=== PATIENT | female | born 1940 | race Two or more races ===

== ENCOUNTER 2018-01-13 11:49 | Emergency (ER) | payer MEDICARE, OTHER ==
[~2018-01-13] VITALS: Ht 142.2 cm; Wt 36.7 kg
[2018-01-13 13:06] VITALS: BP 186/71
[2018-01-13 13:25] LABS: HEMATOCRIT 24.9 % (37.0-47.0); HEMOGLOBIN 8.4 G/DL (12.0-16.0); MEAN CORPUSCULAR VOLUME 92 FL (80-99); PLATELET COUNT 167 K/UL (150-450); RED BLOOD COUNT 2.71 M/UL (4.20-5.40); RED CELL DISTRIBUTION WIDTH 14.6 % (11.6-14.8); WHITE BLOOD COUNT 7.8 K/UL (4.8-10.8)
[2018-01-13 13:39] LABS: ANION GAP 8 mmol/L (5-15); BLOOD UREA NITROGEN 11 mg/dL (7-18); CALCIUM 8.5 MG/DL (8.5-10.1); CARBON DIOXIDE 34 MMOL/L (21-32); CHLORIDE 94 MMOL/L (98-107); POTASSIUM 3.6 MMOL/L (3.5-5.1); SODIUM 135 MMOL/L (136-145)
[2018-01-13 13:44] LABS: ALANINE AMINOTRANSFERASE 17 U/L (12-78); ALBUMIN 3.4 G/DL (3.4-5.0); ALBUMIN/GLOBULIN RATIO 0.8 (1.0-2.7); ALKALINE PHOSPHATASE 88 U/L (46-116); ASPARTATE AMINO TRANSFERASE 25 U/L (15-37); BILIRUBIN,TOTAL 0.7 MG/DL (0.2-1.0)
--- NOTE | 2018-01-13 15:10 | Emergency Room Report ---
History of Present Illness General Chief Complaint: Abnormal Labs Source: Family Member, Medical Record Present Illness HPI This patient presents to the emergency department at the request of her primary care physician. She underwent routine laboratory studies on January 10 and was found to be anemic with hemoglobin in the mid sevens. She does have a history of anemia but normally not quite this low. She has no other complaints. She denies abdominal pain. She denies dark-colored stool. She denies diarrhea. She denies hematemesis. She denies epigastric pain. She does have a history of end-stage renal disease and is dialysis dependent. She has no other complaints. Allergies: Coded Allergies: ADALIMUMAB (Verified Allergy, Severe, Rash, 01/13/18) PENICILLINS (Verified Allergy, Severe, Rash, 01/13/18) METHOTREXATE (Verified Allergy, Unknown, 01/13/18) Uncoded Allergies: GOLD (Allergy, Unknown, 01/13/18) Patient History Past Medical History: see triage record, HTN, renal disease, dialysis, other - Hyperthyroid Social History: Denies: smoking, alcohol use, drug use Last Menstrual Period: na Reviewed Nursing Documentation: PMH: Agreed; PSxH: Agreed Nursing Documentation-PMH Past Medical History: No History, Except For Hx Gastrointestinal Problems: Yes - gi bleed Hx Dialysis: Yes History Of Psychiatric Problem: Yes - depression Hx Neurological Problems: Yes - rheumatoid arthritis Review of Systems All Other Systems: negative except mentioned in HPI Physical Exam Vital Signs Date Time Temp Pulse Resp B/P (MAP) Pulse Ox O2 Delivery O2 Flow Rate FiO2 01/13/18 12:04 98.2 79 16 158/55 97 Room Air 98.2 Sp02 EP Interpretation: reviewed, normal General Appearance: no apparent distress, alert, GCS 15, non-toxic Head: normocephalic, atraumatic Eyes: bilateral eye normal inspection, bilateral eye PERRL ENT: hearing grossly normal, normal pharynx, no angioedema, normal voice Neck: full range of motion, supple/symm/no masses Respiratory: chest non-tender, lungs clear, normal breath sounds, no respiratory distress, no retraction, no accessory muscle use, speaking full sentences Cardiovascular #1: regular rate, rhythm, no edema Gastrointestinal: normal bowel sounds, non tender, soft, non-distended, no guarding, no rebound Rectal: deferred Musculoskeletal: back normal, gait/station normal, normal range of motion, non- tender Neurologic: alert, oriented x3, responsive, motor strength/tone normal, sensory intact, speech normal Psychiatric: judgement/insight normal, memory normal, mood/affect normal, no suicidal/homicidal ideation Skin: normal color, no rash, warm/dry, well hydrated Medical Decision Making Diagnostic Impression: Primary Impression: Anemia ER Course The patient has a normocytic anemia. I am unsure of the etiology. The history is not consistent with a GI bleed. There could still be a small occult GI bleed. The hemoglobin is actually higher than the previous drawn lab. Further discussion with the patient's daughter who is a nurse feels that this can be worked up as an outpatient. The patient has chronic anemia. She will follow- up with her primary care physician Dr. Joshi for colonoscopy and endoscopy. I feel that this is an appropriate plan. I did discuss this with the patient's primary care physician Dr. Joshi who also agreed to the plan. He will follow -up closely in his clinic. The patient and the patient's daughter given close return precautions and follow-up instructions. Laboratory Tests Test 01/13/18 13:00 White Blood Count 7.8 K/UL (4.8-10.8) Red Blood Count 2.71 M/UL (4.20-5.40) L Hemoglobin 8.4 G/DL (12.0-16.0) L Hematocrit 24.9 % (37.0-47.0) L Mean Corpuscular Volume 92 FL (80-99) Mean Corpuscular Hemoglobin 31.0 PG (27.0-31.0) Mean Corpuscular Hemoglobin Concent 33.8 G/DL (32.0-36.0) Red Cell Distribution Width 14.6 % (11.6-14.8) Platelet Count 167 K/UL (150-450) Mean Platelet Volume 5.2 FL (6.5-10.1) L Neutrophils (%) (Auto) % (45.0-75.0) Lymphocytes (%) (Auto) % (20.0-45.0) Monocytes (%) (Auto) % (1.0-10.0) Eosinophils (%) (Auto) % (0.0-3.0) Basophils (%) (Auto) % (0.0-2.0) Differential Total Cells Counted 100 Neutrophils % (Manual) 93 % (45-75) H Lymphocytes % (Manual) 4 % (20-45) L Monocytes % (Manual) 3 % (1-10) Eosinophils % (Manual) 0 % (0-3) Basophils % (Manual) 0 % (0-2) Band Neutrophils 0 % (0-8) Platelet Estimate Adequate Platelet Morphology Normal Hypochromasia Anisocytosis 1+ Prothrombin Time 10.1 SEC (9.30-11.50) Prothrombin Time INR 1.0 (0.9-1.1) PTT 29 SEC (23-33) Sodium Level 135 MMOL/L (136-145) L Potassium Level 3.6 MMOL/L (3.5-5.1) Chloride Level 94 MMOL/L (98-107) L Carbon Dioxide Level 34 MMOL/L (21-32) H Anion Gap 8 mmol/L (5-15) Blood Urea Nitrogen 11 mg/dL (7-18) Creatinine 2.0 MG/DL (0.55-1.30) H Estimate Glomerular Filtration Rate mL/min (>60) Glucose Level 107 MG/DL (74-106) H Calcium Level 8.5 MG/DL (8.5-10.1) Total Bilirubin 0.7 MG/DL (0.2-1.0) Aspartate Amino Transferase (AST) 25 U/L (15-37) Alanine Aminotransferase (ALT) 17 U/L (12-78) Alkaline Phosphatase 88 U/L (46-116) Total Protein 7.7 G/DL (6.4-8.2) Albumin 3.4 G/DL (3.4-5.0) Globulin 4.3 g/dL Albumin/Globulin Ratio 0.8 (1.0-2.7) L Last Vital Signs Date Time Temp Pulse Resp B/P (MAP) Pulse Ox O2 Delivery O2 Flow Rate FiO2 01/13/18 13:06 75 16 186/71 97 Room Air 01/13/18 12:04 98.2 98.2 Status: improved Disposition: HOME, SELF-CARE Condition: Improved Referrals: Champ Peña MD (PCP) Monie Uribe DO Jan 13, 2018 15:10
[2018-01-13 15:20] VITALS: BP 165/87
== END 2018-01-13 15:20 | disposition home or self-care (01) ==
LOC: EMR 12:44
DX: D64.9 Anemia, unspecified (principal); I12.0 Hypertensive chronic kidney disease with stage 5 chronic kidney disease or end stage renal disease; N18.6 End stage renal disease; M06.9 Rheumatoid arthritis, unspecified; Z99.2 Dependence on renal dialysis; Z88.0 Allergy status to penicillin; Z88.8 Allergy status to other drugs, medicaments and biological substances
CPT/HCPCS: 36415; 80053; 85007; 85025; 85610; 85730; 99284

== ENCOUNTER 2018-02-10 13:08 | Outpatient (CLI) | payer MEDICARE, OTHER ==
[2018-02-10 14:10] VITALS: BP 157/64
[2018-02-10] MEDS ORDERED: PREDNISONE10 MG ORAL (14:59)
[2018-02-10] MEDS ORDERED: PANTOPRAZOLE SO40 MG ORAL (14:59)
[2018-02-10] MEDS ORDERED: LEVETIRACETAM500 MG ORAL (14:59)
[2018-02-10] MEDS ORDERED: GABAPENTIN100 MG ORAL (14:59)
[2018-02-10] MEDS ORDERED: LABETALOL HCL200 MG ORAL (14:59)
[2018-02-10] MEDS ORDERED: LEXAPRO10 MG ORAL (14:59)
[2018-02-10] MEDS ORDERED: BARACLUDE0.5 MG ORAL (14:59)
[2018-02-10] MEDS ORDERED: HYDRALAZINE HC100 MG ORAL (14:59)
[2018-02-10] MEDS ORDERED: PROCARDIA XL90 M4 ORAL (14:59)
[2018-02-10] MEDS ORDERED: FUROSEMIDE40 MG ORAL (14:59)
[2018-02-10] MEDS ORDERED: RENVELA0.8 GM ORAL (14:59)
--- NOTE | 2018-02-10 18:04 | GI Initial Consult Note ---
History of Present Illness General Date patient seen: Feb 10, 2018 Time patient seen: 15:00 Referring physician: SCOTTY Reason for Consultation: PRE OP EGD Present Illness HPI 78 year old female patient presents today for evaluation of anemia. In addition , has complaint of unintentional weight loss. No other GI symptoms noted; denies abdominal pain, denies N/V/D or constipation. Denies any unintentional weight loss or changes in dietary habits. No signs of abuse or neglect. Patient is not fall risk. Home Meds Reported Medications Entecavir* (BARACLUDE*) 0.5 Mg Tablet, 0.5 MG ORAL QWEEK, TAB 02/10/18 Hydralazine Hcl* (HYDRALAZINE HCL*) 100 Mg Tablet, 100 MG ORAL BID, TAB 02/10/18 Escitalopram Oxalate* (LEXAPRO*) 10 Mg Tablet, 15 MG ORAL DAILY, TAB 02/10/18 Sevelamer Carbonate* (RENVELA*) 0.8 Gm Powd.pack, 800 MG ORAL THREE TIMES A DAY , PACK 02/10/18 Furosemide* (LASIX*) 40 Mg Tablet, 40 MG ORAL TWICE A DAY, TAB 0 Refills 02/10/18 Prednisone* (PREDNISONE*) 10 Mg Tablet, 10 MG ORAL BID, #10 TAB 0 Refills 02/10/18 Pantoprazole* (PANTOPRAZOLE*) 40 Mg Tablet.dr, 40 MG ORAL EVERY 12 HOURS, TAB 02/10/18 Levetiracetam* (LEVETIRACETAM*) 500 Mg Tablet, 500 MG ORAL TWICE A DAY, #60 TAB 0 Refills 02/10/18 Labetalol Hcl* (NORMODYNE*) 200 Mg Tablet, 200 MG ORAL EVERY 12 HOURS, TAB 02/10/18 Gabapentin* (GABAPENTIN*) 100 Mg Capsule, 100 MG ORAL BID, CAP 02/10/18 Nifedipine Xl* (PROCARDIA XL*) 90 Mg Tab.er.24, 90 MG ORAL BID, TAB 02/10/18 Med list reviewed/reconciled: Yes Allergies: Coded Allergies: ADALIMUMAB (Verified Allergy, Severe, Rash, 01/13/18) PENICILLINS (Verified Allergy, Severe, Rash, 01/13/18) METHOTREXATE (Verified Allergy, Unknown, 01/13/18) Uncoded Allergies: GOLD (Allergy, Unknown, 01/13/18) Patient History History Provided By: Patient, Medical Record PMH Narrative Pleural Effusion Pericardial Effusion HTN ESRD LVH SCI ANEMIA s/p Septic Shock OA RA Wheelchair dependent HTN PUD Past Surgical History: Thoracentesis Hysterectomy Laminectomy Social History: Denies: smoking, alcohol use, drug use, other Review of Systems All Other Systems: negative except mentioned in HPI Physical Exam Vital Signs Date Time Temp Pulse Resp B/P (MAP) Pulse Ox O2 Delivery O2 Flow Rate FiO2 02/10/18 14:10 97.8 76 16 157/64 95 Sp02 EP Interpretation: reviewed, normal General Appearance: well appearing, no apparent distress, alert Head: normocephalic EENT: PERRL/EOMI, normal ENT inspection Neck: supple Respiratory: normal breath sounds, no respiratory distress Cardiovascular: normal rate Gastrointestinal: normal inspection, non tender, soft, normal bowel sounds, non -distended Rectal: deferred Genitourinary: no CVA tenderness Musculoskeletal: normal inspection, back normal Neurologic: normal inspection, alert, oriented x3, responsive Psychiatric: normal inspection, judgement/insight normal, memory normal Skin: normal inspection, normal color, no rash, warm/dry, palpation normal, well hydrated Lymphatic: normal inspection, no adenopathy GI: Plan Problems: (1) Anemia (2) Weight loss (3) Colonoscopy planned (4) GERD (gastroesophageal reflux disease) (5) HTN (hypertension) (6) ESRD (end stage renal disease) (7) PUD (peptic ulcer disease) Plan EGD/colonoscopy scheduled. - CLD & (Nulytely/Suprep/Movi-Prep) prep instructions given and acknowledged by patient. - NPO @ MO day prior procedure explained. Seen with Dr. Cruz. Thank you for this patient referral. The patient was seen and examined at bedside and all new and available data was reviewed in the patients chart. I agree with the above findings, impression and plan. (Patient seen earlier today. Signature stamp does not reflect patient encounter time.). - MD Meliza Levi,[facility] [employer] Feb 10, 2018 18:04
== END 2018-02-10 13:38 | disposition home or self-care (01) ==
LOC: PAN 13:08
DX: Z01.818 Encounter for other preprocedural examination (principal); D64.9 Anemia, unspecified; R63.4 Abnormal weight loss; K21.9 Gastro-esophageal reflux disease without esophagitis; I12.0 Hypertensive chronic kidney disease with stage 5 chronic kidney disease or end stage renal disease; N18.6 End stage renal disease; K27.9 Peptic ulcer, site unspecified, unspecified as acute or chronic, without hemorrhage or perforation; M19.90 Unspecified osteoarthritis, unspecified site; M06.9 Rheumatoid arthritis, unspecified; Z99.3 Dependence on wheelchair; Z88.0 Allergy status to penicillin; Z88.8 Allergy status to other drugs, medicaments and biological substances; Z91.048 Other nonmedicinal substance allergy status
CPT/HCPCS: 99202

== ENCOUNTER 2018-02-19 09:16 | Day surgery (SDC) | payer MEDICARE, OTHER ==
[~2018-02-19] VITALS: Ht 142.2 cm; Wt 40.4 kg
[~2018-02-19 09:16] MED LIST: BARACLUDE0.5 MG ORAL; FUROSEMIDE40 MG ORAL; GABAPENTIN100 MG ORAL; HYDRALAZINE HC100 MG ORAL; LABETALOL HCL200 MG ORAL; LEVETIRACETAM500 MG ORAL; LEXAPRO10 MG ORAL; PANTOPRAZOLE SO40 MG ORAL; PREDNISONE10 MG ORAL; PROCARDIA XL90 M4 ORAL; RENVELA0.8 GM ORAL
--- NOTE | 2018-02-19 09:50 | Short Stay Surgery H&P ---
History of Present Illness History of Present Illness Chief Complaint see recent office note HPI Guicho Rogers is a 78 year old female who was admitted on for Anemia And Gerd Patient History Allergies: Coded Allergies: ADALIMUMAB (Verified Allergy, Severe, Rash, 01/13/18) PENICILLINS (Verified Allergy, Severe, Rash, 01/13/18) METHOTREXATE (Verified Allergy, Unknown, 01/13/18) Uncoded Allergies: GOLD (Allergy, Unknown, 01/13/18) Medication History Scheduled Entecavir* (Baraclude*), 0.5 MG ORAL QWEEK, (Reported) Escitalopram Oxalate* (Lexapro*), 15 MG ORAL DAILY, (Reported) Furosemide* (Lasix*), 40 MG ORAL TWICE A DAY, (Reported) Gabapentin* (Gabapentin*), 100 MG ORAL BID, (Reported) Hydralazine Hcl* (Hydralazine Hcl*), 100 MG ORAL BID, (Reported) Labetalol Hcl* (Normodyne*), 200 MG ORAL EVERY 12 HOURS, (Reported) Levetiracetam* (Levetiracetam*), 500 MG ORAL TWICE A DAY, (Reported) Nifedipine Xl* (Procardia Xl*), 90 MG ORAL BID, (Reported) Pantoprazole* (Pantoprazole*), 40 MG ORAL EVERY 12 HOURS, (Reported) Prednisone* (Prednisone*), 10 MG ORAL BID, (Reported) Sevelamer Carbonate* (Renvela*), 800 MG ORAL THREE TIMES A DAY, (Reported) Plan Attestation Are the patient's medical conditions optimized for surgery? Brian Cruz MD Feb 19, 2018 09:50
--- NOTE | 2018-02-19 09:50 | Pre-Procedure Note/Attestation ---
Pre-Procedure Note/Attestation Complete Prior to Procedure Planned Procedure: not applicable Procedure Narrative: egd Indications for Procedure Pre-Operative Diagnosis: anemia Attestation I attest that I discussed the nature of the procedure; its benefits; risks and complications; and alternatives (and the risks and benefits of such alternatives ), prior to the procedure, with the patient (or the patient's legal sales and merchandising representative). I attest that, if there was a reasonable possibility of needing a blood transfusion, the patient (or the patient's legal sales and merchandising representative) was given the [facility] standardized written summary, pursuant to the [place] Blood Safety Act ([place] Health and Safety Code # 1645, as amended). I attest that I re-evaluated the patient just prior to the surgery and that there has been no change in the patient's H&P, except as documented below: Brian Cruz MD Feb 19, 2018 09:50
[2018-02-19 09:58] VITALS: BP 145/58
[2018-02-19 10:33] LABS: ANION GAP 10 mmol/L (5-15); BLOOD UREA NITROGEN 33 mg/dL (7-18); CARBON DIOXIDE 27 MMOL/L (21-32); CHLORIDE 95 MMOL/L (98-107); CREATININE 5.2 MG/DL (0.55-1.30); EOSINOPHILS % (AUTO) 5.1 % (0.0-3.0); HEMATOCRIT 36.6 % (37.0-47.0); HEMOGLOBIN 11.7 G/DL (12.0-16.0); LYMPHOCYTES % (AUTO) 11.2 % (20.0-45.0); MEAN CORPUSCULAR VOLUME 105 FL (80-99); MONOCYTES % (AUTO) 9.9 % (1.0-10.0); NEUTROPHILS % (AUTO) 72.8 % (45.0-75.0); PLATELET COUNT 138 K/UL (150-450); POTASSIUM 4.4 MMOL/L (3.5-5.1); RED BLOOD COUNT 3.48 M/UL (4.20-5.40); RED CELL DISTRIBUTION WIDTH 15.8 % (11.6-14.8); SODIUM 132 MMOL/L (136-145); WHITE BLOOD COUNT 6.4 K/UL (4.8-10.8)
[2018-02-19] MEDS ORDERED: VITAMIN C250 MG ORAL (10:44)
[2018-02-19] MEDS ORDERED: RENA-VITE RX T1 EAC1 PO (10:44)
[2018-02-19] MEDS ORDERED: VITAMIN D1000 UNI1 ORAL (10:44)
[2018-02-19] MEDS ORDERED: FERROUS GLUCON324 M1 PO (10:44)
[2018-02-19] MEDS ORDERED: Lidocaine 1% MPF 10mg/ml 5ml ONE (11:37)
[2018-02-19] MEDS ORDERED: Propofol 200mg/20ml IV ONE (11:37)
--- NOTE | 2018-02-19 12:04 | Endoscopy Procedure Note ---
Endoscopy Procedure Note General Indication for Procedure: anemia Procedures Performed: EGD Operative Findings/Diagnosis: gastritris Specimen: yes Pt Tolerated Procedure Well: Yes Estimated Blood Loss: none Anesthesia Anesthesiologist: parvin Anesthesia: MAC Inserted Devices Implant(s) used?: No GI Core Measures 50 yrs or older w/o bx or poly: Not Applicable 10yrs. F/U not recommended: Not Applicable Brian Cruz MD Feb 19, 2018 12:04
[2018-02-19 12:25] VITALS: BP 175/57
[2018-02-19 12:30] VITALS: BP 168/57
[2018-02-19 12:35] VITALS: BP 161/56
--- NOTE | 2018-02-19 12:52 | Anethesia Preoperative Eval ---
Anesthesia Pre-op PMH/ROS General Date of Evaluation: Feb 19, 2018 Time of Evaluation: 11:37 Anesthesiologist: parvin ASA Score: ASA 4 Mallampati Score Class I : Soft palate, uvula, fauces, pillars visible Class II: Soft palate, uvula, fauces visible Class III: Soft palate, base of uvula visible Class IV: Only hard plate visible Mallampati Classification: Class II Surgeon: rei Diagnosis: anemia, gerd Surgical Procedure: egd Anesthesia History: none Social History: smoking - nonsmoker Family History: no anesthesia problems Allergies: Coded Allergies: ADALIMUMAB (Verified Allergy, Severe, Rash, 01/13/18) PENICILLINS (Verified Allergy, Severe, Rash, 01/13/18) METHOTREXATE (Verified Allergy, Unknown, 01/13/18) Uncoded Allergies: GOLD (Allergy, Unknown, 01/13/18) Medications: see eMAR Patient NPO?: Yes Past Medical History Cardiovascular: Reports: HTN, other - lvh Pulmonary: Reports: other - pleural effusion Gastrointestinal/Genitourinary: Reports: GERD, ESRD Neurologic/Psychiatric: Reports: depression/anxiety Hematology/Immune: Reports: anemia Musculoskeletal/Integumentary: Reports: OA, RA Anesthesia Pre-op Phys. Exam Physician Exam Last Vital Signs Date Time Temp Pulse Resp B/P (MAP) Pulse Ox O2 Delivery O2 Flow Rate FiO2 02/19/18 12:35 78 18 161/56 97 Nasal Cannula 2 02/19/18 12:25 98.6 Constitutional: NAD, other - multiple flat ecchymotic lesions bilateral upper and lower extremities Neurologic: CN 2-12 intact Cardiovascular: RRR Respiratory: other - bilateral rales Gastrointestinal: S/NT/ND Airway Exam Mallampati Score: Class II MO: limited Neck: flexible TMD: 2fb ROM: limited Teeth: missing Anesthesia Pre-op A/P Labs Hematology Test 02/19/18 10:05 White Blood Count 6.4 K/UL (4.8-10.8) Red Blood Count 3.48 M/UL (4.20-5.40) L Hemoglobin 11.7 G/DL (12.0-16.0) L Hematocrit 36.6 % (37.0-47.0) L Mean Corpuscular Volume 105 FL (80-99) H Mean Corpuscular Hemoglobin 33.5 PG (27.0-31.0) H Mean Corpuscular Hemoglobin Concent 31.9 G/DL (32.0-36.0) L Red Cell Distribution Width 15.8 % (11.6-14.8) H Platelet Count 138 K/UL (150-450) L Mean Platelet Volume 5.6 FL (6.5-10.1) L Neutrophils (%) (Auto) 72.8 % (45.0-75.0) Lymphocytes (%) (Auto) 11.2 % (20.0-45.0) L Monocytes (%) (Auto) 9.9 % (1.0-10.0) Eosinophils (%) (Auto) 5.1 % (0.0-3.0) H Basophils (%) (Auto) 1.0 % (0.0-2.0) Chemistry Test 02/19/18 10:05 Sodium Level 132 MMOL/L (136-145) L Potassium Level 4.4 MMOL/L (3.5-5.1) Chloride Level 95 MMOL/L (98-107) L Carbon Dioxide Level 27 MMOL/L (21-32) Anion Gap 10 mmol/L (5-15) Blood Urea Nitrogen 33 mg/dL (7-18) H Creatinine 5.2 MG/DL (0.55-1.30) H Estimat Glomerular Filtration Rate mL/min (>60) Glucose Level 92 MG/DL (74-106) Calcium Level 8.0 MG/DL (8.5-10.1) L Studies Pre-op Studies: EKG - nsr, lvh, cannot r/o septal infarct Risk Assessment & Plan Assessment: asa4 Plan: mac Status Change Before Surgery: No Pre-Antibiotics Drug: Agata Reyes MD Feb 19, 2018 12:52
--- NOTE | 2018-02-19 12:53 | Immediate Post-Op Evaluation ---
Immediate Post-Op Evalulation Immediate Post-Op Evalulation Procedure: egd w/bx Date of Evaluation: Feb 19, 2018 Time of Evaluation: 12:37 IV Fluids: 300ml 0.9ns Blood Products: none Estimated Blood Loss: negligible Blood Pressure Systolic: 175 Blood Pressure Diastolic: 57 Pulse Rate: 78 Respiratory Rate: 18 O2 Sat by Pulse Oximetry: 97 Temperature (Fahrenheit): 98.6 Pain Score (1-10): 0 Nausea: No Vomiting: No Complications none Patient Status: awake, reacts, patent Hydration Status: adequate Drug: Agata Reyes MD Feb 19, 2018 12:53
[2018-02-19 12:54] VITALS: BP 152/58
--- NOTE | 2018-02-19 12:55 | 48 Hour Post Anesthesia Eval ---
Post Anesthesia Evaluation Procedure: egd w/bx Date of Evaluation: Feb 19, 2018 Time of Evaluation: 12:39 Blood Pressure Systolic: 168 0: 57 Pulse Rate: 79 Respiratory Rate: 18 Temperature (Fahrenheit): 98.6 O2 Sat by Pulse Oximetry: 98 Airway: patent Nausea: No Vomiting: No Pain Intensity: 0 Hydration Status: adequate Cardiopulmonary Status: stable Mental Status/LOC: patient returned to baseline Post-Anesthesia Complications: none Follow-up care needed: N/A Agata Kiran MD Feb 19, 2018 12:55
[2018-02-19 13:00] VITALS: BP 151/63
[2018-02-19] MEDS ORDERED: DiphenhydrAMINE 50mg/ml Inj IVP PRN (13:00)
[2018-02-19] MEDS ORDERED: fentaNYL 100 mcg/2 mL IV PRN (13:00)
[2018-02-19] MEDS ORDERED: Atropine Inj 1mg/10ml Syr IV PRN (13:00)
[2018-02-19] MEDS ORDERED: Midazolam 2mg/2ml Inj IVP PRN (13:00)
--- NOTE | 2018-02-19 17:00 | Procedure Note ---
DATE OF PROCEDURE: 02/19/2018 SURGEON: Brian Cruz M.D. PROCEDURE: Upper endoscopy with biopsy. ANESTHESIOLOGIST: Agata Flynn M.D. INSTRUMENT: Olympus adult flexible upper endoscope. INDICATION: Gastrointestinal bleeding. REASON FOR PROCEDURE: The procedure, risks, benefits, and possible consequences, including hemorrhage, aspiration, perforation and infection, and alternative treatments, were explained to the patient/legal guardian by Dr. Brian Cruz and the patient/legal guardian understood and accepted these risks. DESCRIPTION OF PROCEDURE: After informed consent was obtained and the patient was adequately sedated, Olympus upper endoscope was advanced from the mouth into the second portion of the duodenum and retroflexion was performed of the stomach. The patient had evidence of diffuse gastritis. Random biopsies from antrum and body was obtained to rule out H. pylori infection. There was evidence of a small area suspicious for healing ulcer at body of the stomach around the lesser curvature. No evidence of any visible clot or adherent clot. No evidence of any active bleeding at this time. The patient tolerated the procedure very well without any complication. SUMMARY OF FINDINGS: 1. Gastritis status post biopsy. 2. Questionable healing ulcer at the lesser curvature of the body. RECOMMENDATIONS: 1. Follow up biopsies and treat accordingly. 2. We will send the stool for OB. If it is positive, we will consider colonoscopy, discussed with the family. I want to thank Dr. Peña for this kind referral. Brian Cruz M.D. DR: VERONICA JOB#: [id number] CC: Champ Peañ M.D.; Fax#: [phone]
--- NOTE | 2018-02-22 15:09 | Cardiology Report ---
APPROVED REPORT EKG Measurement Heart [id number] MD [id number] Normal sinus rhythm Left ventricular hypertrophy with repolarization abnormality Cannot rule out Septal infarct, age undetermined Abnormal ECG
== END 2018-02-19 13:40 | disposition home or self-care (01) ==
LOC: GAS 09:16
DX: K29.70 Gastritis, unspecified, without bleeding (principal); K21.9 Gastro-esophageal reflux disease without esophagitis; I12.0 Hypertensive chronic kidney disease with stage 5 chronic kidney disease or end stage renal disease; N18.6 End stage renal disease; Z99.2 Dependence on renal dialysis; I51.7 Cardiomegaly; M06.9 Rheumatoid arthritis, unspecified; F32.9 Major depressive disorder, single episode, unspecified; F41.9 Anxiety disorder, unspecified; M19.90 Unspecified osteoarthritis, unspecified site; Z88.0 Allergy status to penicillin; Z88.8 Allergy status to other drugs, medicaments and biological substances
CPT/HCPCS: 36415; 43239; 80048; 85025; 93005; J2704; 94003; 94150

== ENCOUNTER 2018-02-23 14:05 | Emergency (ER) | payer MEDICARE, OTHER ==
[~2018-02-23] VITALS: Ht 142.2 cm; Wt 40.4 kg
[~2018-02-23 14:05] MED LIST changes: +FERROUS GLUCON324 M1 PO; +RENA-VITE RX T1 EAC1 PO; +VITAMIN C250 MG ORAL; +VITAMIN D1000 UNI1 ORAL
[2018-02-23 14:40] VITALS: BP 135/50
[2018-02-23] MEDS ORDERED: AVAPRO150 MG ORAL (14:45)
[2018-02-23] MEDS ORDERED: Tylenol #3 tab (300mg/30mg) ORAL ONE (15:00)
[2018-02-23 17:19] VITALS: BP 137/53
[2018-02-23 17:31] VITALS: BP 137/53
--- NOTE | 2018-02-23 19:34 | Emergency Room Report ---
History of Present Illness General Chief Complaint: Multiple Trauma/Fall Source: Family Member Present Illness HPI The patient is a 78-year-old female accompanied by daughter presenting for pain after falling today. The daughter states that the patient was in the bathtub, slipped, and fell onto the left hip and then her head struck the tub. She denies any loss of consciousness. Pain is primarily felt to the left hip as a 5 out of 10 dull ache and does not radiate. Worse with touch and movement. Patient is able to walk. Pain to the back of the head is described as a 2 out of 10 dull ache and does not radiate. Worse with touch. She denies other symptoms including nausea, vomiting, shortness of breath, chest pain, dizziness, blurred vision, neck pain, numbness or tingling Pt on dialysis M, F Allergies: Coded Allergies: ADALIMUMAB (Verified Allergy, Severe, Rash, 01/13/18) PENICILLINS (Verified Allergy, Severe, Rash, 01/13/18) METHOTREXATE (Verified Allergy, Unknown, 01/13/18) Uncoded Allergies: GOLD (Allergy, Unknown, 01/13/18) Patient History Past Medical History: see triage record Pertinent Family History: none Reviewed Nursing Documentation: PMH: Agreed; PSxH: Agreed Nursing Documentation-PMH Past Medical History: No History, Except For Hx Cardiac Problems: Yes - pericardial effusion, LVH Hx Hypertension: Yes Hx Cancer: No Hx Gastrointestinal Problems: Yes Hx Dialysis: Yes - SHUNT RIGHT ARM-SAT/-LAST DIALYSIS SATURDAY Hx Neurological Problems: No Hx Neurologic Surgery: Yes - CERVICAL LAMINECTOMY-2012,LUMBAR/THORACIC-2007 Review of Systems All Other Systems: negative except mentioned in HPI Physical Exam Vital Signs Date Time Temp Pulse Resp B/P (MAP) Pulse Ox O2 Delivery O2 Flow Rate FiO2 02/23/18 14:32 98.1 92 21 110/82 98 Room Air Sp02 EP Interpretation: reviewed, normal General Appearance: no apparent distress, alert, GCS 15, non-toxic Head: normocephalic, other - <1cm lac to posterior scalp. No bleeding. Mild hematoma Eyes: bilateral eye normal inspection, bilateral eye PERRL, bilateral eye EOMI ENT: hearing grossly normal, normal pharynx, no angioedema, normal voice Neck: full range of motion, supple/symm/no masses, tender midline Respiratory: chest non-tender, lungs clear, normal breath sounds, speaking full sentences Cardiovascular #1: regular rate, rhythm, no edema Musculoskeletal: back normal, gait/station normal, normal range of motion, pelvis stable, tender - L lateral hip Neurologic: alert, oriented x3, responsive, motor strength/tone normal, sensory intact, speech normal Psychiatric: judgement/insight normal, memory normal, mood/affect normal, no suicidal/homicidal ideation Skin: hematoma - L lateral hip Medical Decision Making PA Attestation Dr. Cutler is my supervising physician. Patient management was discussed with my supervising physician Diagnostic Impression: Primary Impression: Contusion, hip Qualified Codes: S70.02XA - Contusion of left hip, initial encounter Additional Impressions: Fall Qualified Codes: W19.XXXA - Unspecified fall, initial encounter Sinusitis Qualified Codes: J32.9 - Chronic sinusitis, unspecified ER Course The patient is a 78-year-old female accompanied by daughter presenting for pain after falling today Differential diagnoses considered but not limited to: Concussion, contusion, intracranial hemorrhage, fracture, among others PE: NAD. Head is normocephalic. There is a less than 1 cm linear laceration to posterior scalp. Non-gaping. No bleeding. There is an underlying hematoma. No scalp depressions. PERRL. EOMI Neck is soft and supple. There is midline tenderness to the C-spine. No step- offs RRR. Lungs clear to auscultation bilaterally Left hip has lateral hematoma. Tender to palpation. Full active range of motion intact. Patient is able to ambulate slowly. CT head: + STS and sinus disease CT C spine: no acute findings. L hip xray: no fracture or dislocation Pt given T#3 which has helped with pain. She is Dc'ed home and will F/U with PMD. Prescription for azithromycin called in to [facility] pharmacy. Dr. Cutler discussed findings with patient's daughter. Other X-Ray Diagnostic Results Other X-Ray Diagnostic Results : X-Ray ordered: L hip # of Views/Limited Vs Complete: 3 View Indication: Pain EP Interpretation: Yes PA Xray: Interpretation reviewed, by supervising MD, and agrees with findings. Interpretation: no dislocation, no soft tissue swelling, no fractures Impression: No acute disease Electronically Signed by: KAMERON Mendez Scribe Text I have reviewed the xray with my supervising physician and interpretation is that there are no fractures, dislocations or soft tissue swelling. CT/MRI/US Diagnostic Results CT/MRI/US Diagnostic Results #1: Imaging Test Ordered: CT head Impression + STS and sinus disease CT/MRI/US Diagnostic Results #2: Imaging Test Ordered: CT C spine Impression No acute findings. Please see official CT report Last Vital Signs Date Time Temp Pulse Resp B/P (MAP) Pulse Ox O2 Delivery O2 Flow Rate FiO2 02/23/18 17:31 98.0 82 22 137/53 98 Room Air Status: improved Disposition: HOME, SELF-CARE Condition: Improved Patient Instructions: Contusion, Fall Prevention in the Home Additional Instructions: I discussed my findings with the patient. All questions and concerns have been answered. Treatment and medication compliance have been addressed. I advised the patient that they need to follow up with PMD within 3-5 days. Return to ED if symptoms worsen, new symptoms arise, or if needed for any reason. You have agreed to leave the Emergency dept before CT scans have been read and understand the risks associated with this. VICTORIA GUIDRY Feb 23, 2018 19:34
--- NOTE | 2018-02-24 09:30 | Diagnostic Imaging Report ---
Indication: Pain Technique: 2 views of the left hip Comparison: none Findings: The bones are osteoporotic. Some heterotopic ossification is seen medial to the proximal femoral shaft. No definite acute fractures. No dislocations. The joint spaces are preserved. There is surgical fusion hardware in the lower spine. Impression: Osteoporosis No definite acute bony trauma. Note, however, that in elderly osteoporotic patients, nondisplaced hip or pelvic fractures can easily be occult. Consider cross-sectional imaging as indicated for further evaluation if there is high clinical suspicion
--- NOTE | 2018-02-24 09:49 | Diagnostic Imaging Report ---
Indication: Neck pain status post fall Technique: Spiral acquisitions obtained through the cervical spine. No IV contrast utilized. Multiplanar reconstructions were generated. Total dose length product 300.9 mGycm. CTDIvol(s) 14.47 mGy. Dose reduction achieved using automated exposure control. Comparison: none Findings: Posterior fusion hardware bridges the C1, C2, and C3 pedicles. There are also cerclage wires surrounding the posterior elements of C1 and C2. There is questionably an old healed fracture deformity of the base of the odontoid evident on the sagittal reconstructions, although this is not evident on the coronal reconstructions. There is considerable degenerative change of the joint space between the occipital condyles and the lateral masses of C1, and of the lateral C1 and C2 joints. Note that the pedicle screws on the right appear to encroach slightly upon the lateral joint. There is also facet arthrosis at C2-3 and possible ankylosis. There is anterior offset of C2 on C3. There is ankylosis, presumably postsurgical, of the C3-4, C4-5, C5-6 discs. There is degenerative narrowing of the C6-7 disc. There is considerable anterior offset of C7 on T1 with extensive secondary degenerative change of the C7-T1 disc. No acute fractures. At C2-3, there is evidence of thickening and calcification of the posterior longitudinal ligament. This likely results in at least moderate narrowing of the spinal canal at this level, although assessment is limited due to streak artifact from the surrounding hardware. The neural foramina are grossly preserved. At C3-4, posterior proliferative change probably results in borderline spinal stenosis, again assessment limited due to surrounding hardware. There is mild narrowing of the left neural foramen and moderate to severe narrowing of the right neural foramen. At C4-5, posterior osteophytes and thickened ossified posterior longitudinal ligament results in at least moderate narrowing the spinal canal and likely significant impingement on the anterior right aspect of the cord. Osteophytes also enter the right foramen transversarium. There is severe narrowing of the right neural foramen and moderate to severe narrowing of the left neural foramen. At C5-6, posterior osteophytes and ossified thickened posterior longitudinal ligament result in at least moderate narrowing of the spinal canal. There is severe neural foraminal stenosis bilaterally. At C6-7, there is severe bilateral neural foraminal stenosis. No significant disc bulge or protrusion or spinal stenosis. At C7-T1, there may be slight compromise of the spinal canal due to the alignment abnormality. There is severe bilateral neural foraminal stenosis. There is a right pleural effusion. The upper aerodigestive tract is unremarkable. There is sphenoid sinus disease. There is some evidence of dental disease. There is fluid in the bilateral mastoids. Impression: No acute bony trauma Extensive degenerative and postsurgical changes, as described Sphenoid sinus and mastoid disease Small right pleural effusion This agrees with the preliminary interpretation provided overnight by [facility]. The CT scanner at [facility] is accredited by the [employer] and the scans are performed using protocols designed to limit radiation exposure to as low as reasonably achievable to attain images of sufficient resolution adequate for diagnostic evaluation.
--- NOTE | 2018-02-24 09:52 | Diagnostic Imaging Report ---
Indications: Head pain, trauma Technique: Spiral acquisitions obtained through the brain. Angled axial and coronal 5 x 5 mm slices were reconstructed. Total dose length product 1379.6 mGycm. CTDI vol(s) 70.38 mGy. Dose reduction achieved using automated exposure control Comparison: None. Findings: There is left parietal scalp hematoma. No underlying calvarial fracture is demonstrated. There is bilateral mastoid disease. There is sphenoid sinus disease. There is evidence of prior bilateral cataract surgery. No acute intracranial hemorrhage nor edema. No mass effect nor midline shift. There is age-related enlargement of the ventricles and extra axial CSF spaces. There is periventricular deep white matter low-attenuation consistent with chronic ischemic change. Impression: Chronic and age-related changes Evidence of left parietal extra cranial scalp soft tissue injury Negative for acute intracranial bleed or mass effect This agrees with the preliminary interpretation provided overnight by [facility]. The CT scanner at [facility] is accredited by the [employer] and the scans are performed using protocols designed to limit radiation exposure to as low as reasonably achievable to attain images of sufficient resolution adequate for diagnostic evaluation.
== END 2018-02-23 17:25 | disposition home or self-care (01) ==
LOC: EMR 14:46
DX: S70.02XA Contusion of left hip, initial encounter (principal); S01.01XA Laceration without foreign body of scalp, initial encounter; W18.2XXA Fall in (into) shower or empty bathtub, initial encounter; W01.198A Fall on same level from slipping, tripping and stumbling with subsequent striking against other object, initial encounter; Y92.012 Bathroom of single-family (private) house as the place of occurrence of the external cause; I10 Essential (primary) hypertension; Z88.8 Allergy status to other drugs, medicaments and biological substances; Z88.0 Allergy status to penicillin; Z91.048 Other nonmedicinal substance allergy status; Z99.2 Dependence on renal dialysis
CPT/HCPCS: 70450; 72125; 73502; 99284